=== PATIENT | male | born 1990 | race Native Hawaiian/Other Pacific Islander ===

== ENCOUNTER 2016-11-03 21:50 | Emergency (ER) | payer BC ==
[2016-11-03 22:16] VITALS: RESP 16
--- NOTE | 2016-11-03 23:12 | ED PDOC ---
HPI: Abdomen Time Seen by Provider: 11/03/16 22:58 Chief Complaint (Nursing): Abdominal Pain Chief Complaint (Provider): abd pain History Per: Patient History/Exam Limitations: no limitations Onset/Duration Of Symptoms: Hrs (3) Current Symptoms Are (Timing): Still Present Location Of Pain/Discomfort: Epigastric Quality Of Discomfort: "Pain" Additional History Per: Patient Additional Complaint(s): 26 y/o male no past medical history presents with upper abdominal pain x 3 hours. Patient states he was performing oral sex on himself, hunched over, and may have "strained", which is when the pain started. Patient noted associated redness to area. Denies fever, vomiting, shortness of breath, palpitations, changes in bowel movements, dysuria, hematuria. Past Medical History Reviewed: Historical Data, Nursing Documentation, Vital Signs Vital Signs: Last Vital Signs Temp 98.8 F 11/03/16 22:12 Pulse 110 H 11/03/16 22:12 Resp 16 11/03/16 22:12 BP 160/94 H 11/03/16 22:12 Pulse Ox 100 11/03/16 23:12 - Medical History PMH: No Chronic Diseases - Surgical History Surgical History: No Surg Hx - Family History Family History: States: No Known Family Hx - Living Arrangements Living Arrangements: Alone - Home Medications Home Medications: Ambulatory Orders Medication Instructions Recorded Cyclobenzaprine [Cyclobenzaprine 10 mg PO BID PRN #14 tab 11/04/16 HCl] Naproxen [Naprosyn] 500 mg PO Q12 PRN #20 tablet 11/04/16 - Allergies Allergies/Adverse Reactions: Allergies Allergy/AdvReac Type Severity Reaction Status Date / Time No Known Allergies Allergy Verified 11/03/16 22:12 Review of Systems ROS Statement: Except As Marked, All Systems Reviewed And Found Negative Gastrointestinal: Positive for: Abdominal Pain Physical Exam - Reviewed Nursing Documentation Reviewed: Yes Vital Signs Reviewed: Yes - Physical Exam Appears: Positive for: Well, Non-toxic, No Acute Distress Head Exam: Positive for: ATRAUMATIC, NORMAL INSPECTION, NORMOCEPHALIC Skin: Positive for: Normal Color Eye Exam: Positive for: Normal appearance ENT: Positive for: Normal ENT Inspection Cardiovascular/Chest: Positive for: Regular Rate, Rhythm Respiratory: Positive for: Normal Breath Sounds Gastrointestinal/Abdominal: Positive for: Tenderness (petechial rash noted upper abdomen/substernum; mild tenderness to touch. No flail chest, deformity noted) Back: Positive for: Normal Inspection Extremity: Positive for: Normal ROM Neurologic/Psych: Positive for: Alert, Oriented - ECG O2 Sat by Pulse Oximetry: 100 - Radiology X-Ray: Viewed By Me X-Ray Interpretation: No Acute Disease - Progress ED Course And Treament: toradol IM, flexeril PO, chest xray ordered Patient educated on findings, discharged with rx Naproxen, flexeril. Advised rest, follow up PMD 2-3 days. Return to ED for worsening/concerning symptoms. Disposition - Clinical Impression Clinical Impression: Strain of abdominal muscle - Patient ED Disposition Is Patient to be Admitted: No Counseled Patient/Family Regarding: Studies Performed, Diagnosis, Need For Followup, Rx Given - Disposition Disposition: Routine/Home Disposition Time: 01:39 Condition: IMPROVED Prescriptions: Cyclobenzaprine [Cyclobenzaprine HCl] 10 mg PO BID PRN #14 tab PRN Reason: Muscle Spasm Naproxen [Naprosyn] 500 mg PO Q12 PRN #20 tablet PRN Reason: Pain, Moderate (4-7) Instructions: Muscle Strain (ED)
[2016-11-04 01:50] VITALS: BP 120/70; PULSE 72; TEMP 98.4; O2SAT 99
--- NOTE | 2016-11-04 13:53 | RAD ---
HISTORY: lower chest/upper abdomen pain COMPARISON: No prior. TECHNIQUE: Chest PA and lateral FINDINGS: LUNGS: No active pulmonary disease. PLEURA: No significant pleural effusion identified. No pneumothorax apparent. CARDIOVASCULAR: Normal. OSSEOUS STRUCTURES: No significant abnormalities. VISUALIZED UPPER ABDOMEN: Normal. OTHER FINDINGS: None. IMPRESSION: No active disease. No preliminary report provided by emergency department personnel.
== END 2016-11-04 02:00 | disposition home or self-care (01) ==
LOC: H.ER 21:50
DX: R10.13 Epigastric pain (principal); M62.838 Other muscle spasm